=== PATIENT | male | born 1995 | race Caucasian/White ===

== ENCOUNTER 2017-10-06 14:45 | Outpatient (CLI) | payer BC ==
[~2017-10-06 14:45] MED LIST: Iopamidol 370 76% 100 ML VIAL ONE
--- NOTE | 2017-10-06 18:57 | CT ---
CT ABDOMEN WITH AND WITHOUT CONTRAST (Pancreas protocol) 10/06/17 HISTORY: 22-year-old male with right flank pain and right upper quadrant pain for weeks. History of pancreatit is. COMPARISON: None. TECHNIQUE: Oral contrast: Gastrografin. IV contrast: 100 mL Isovue 370. Precontrast: Arterial phase and venous phase, scans performed from lung bases to the iliac crests. FINDINGS: There are no pancreatic calcifications. There is no pancreatic ductal dilation or biliary ductal dila tion. No evidence of pancreatic neoplastic mass. No obvious peripancreatic fat stranding to indicate edema. There are multiple mildly enlarged lymph nodes posterior to the pancreas, around the celiac ax is and adjacent to the upper abdominal aorta, and hemalatha hepatis. There are multiple mildly enlarged, centrally located mesenteric lymph nodes. The pancreas is smaller in size than expected for age 22 ye ars. No pancreatic pseudocyst. No signs of acute cholecystitis. No nephrolithiasis or hydronephrosis. Bilaterally symmetrical nephrograms. Normal abdominal aorta, common iliac arteries, superior mesente bro artery, celiac artery, splenic artery, and hepatic artery. Normal liver. Spleen is generous in si ze, but this is probably normal for this age group. No small bowel dilation. No abscess or free fluid identified. The visualized upper portions of the colon are unremarkable except for large volume of s tool. IMPRESSION: 1. Nonspecific mesenteric, hemalatha hepatis, and upper retroperitoneal, mild lymphadenopathy. 2. The pancreas is slightly smaller in size than expected for this age group. 3. No other abnormality identified. POS: [facility]
== END 2017-10-06 14:46 | disposition home or self-care (01) ==
LOC: SCSCT 14:45
PROVIDERS: ATTEND Family Medicine
DX: R10.11 Right upper quadrant pain (principal); R59.0 Localized enlarged lymph nodes; K86.89 Other specified diseases of pancreas
CPT/HCPCS: 74170